=== PATIENT | male | born 1970 ===

== ENCOUNTER 2020-09-12 07:46 | Observation (INO) ==
--- NOTE | 2020-08-26 09:52 | PAT Medication Instructions ---
Medication Instructions Date of Service August 26, 2020 Home Medications lisinopril 10 mg PO QAM DO NOT take the morning of surgery lisinopril 10 mg PO QAM Other Notes If you have any questions please call us at [phone] or [phone] or [phone] or [phone]
--- NOTE | 2020-08-29 11:35 | Anesthesiology Consultation ---
Date of Service August 29, 2020 Assessment & Plan (1) Encounter for pre-operative examination: - COVID screening: Per assessment on 08/29: Travel screen negative, no known COVID-19 positive contacts or current COVID-19 related symptoms. Patient states he and household members follow CDC guidelines regarding masking and social distancing. Surgeon arranging preop COVID testing. Awaiting results. - ETOH use: Patient reports 6 beers/day (nighttime) Chart Review Chart Review: Acceptable Risk for Surgery (pending surgeon-ordered PCP clearance) and Patient seen in Pre Admission Testing Teaching & Discussion Pre-Anesthesia Teaching/Discussion Notes: Instructed NPO after midnight before surgery,except medications with 15 cc of water. Medication instructions provided according to the PAT guidelines. History Surgery Operation Date: 09/12/20 11:40 Proposed Procedures p C5-C7 Anterior Cervical Discectomy Fusion, Spinal Cord Monitoring - Kevin Izquierdo DO Height/Weight Height: 5 ft 7 in Weight: 77.1 kg Allergies Allergy/AdvReac Type Severity Reaction Status Date / Time Penicillins Allergy Unknown Unknown Verified 08/26/20 09:52 childhood reaction Medications Home Medications Medication Instructions Recorded Confirmed Last Taken lisinopril 10 mg tablet 10 mg PO QAM 08/26/20 08/26/20 Unknown Past Medical History Medical History Arthritis Hx of gout Hypertension Myocardial Infarction 20 years ago > medically managed Exercise / Class Metabolic Activity II 4-5 Yardwork/Stairs/Walk up hill Past Family History Family History Mother Family history of diabetes mellitus Other No family history of adverse response to anesthesia Past Surgical History Surgical History H/O lymph node biopsy Benign History of cardiac cath 20 years ago > no stents History of tooth extraction Past Anesthesia History No Hx of Anesthesia Complications and No Family Hx of Anesthesia Complications History of PONV No Hx of PONV and No Hx of Motion Sickness Social History Smoking Status: Current every day smoker tobacco type: cigarettes and smokeless tobacco Smoking cigarettes per day: 10 cigs/day (tobacco use x 20 years) Do You Dip or Chew Tobacco: Yes (1 can/one week > advised none DOS) Hx Alcohol Use: Yes Alcohol type: beer alcohol intake frequency: 3 or more drinks per day (6 beers/day (nighttime)) Hx Substance Use: No substance use type: does not use Review of Systems Occasional chronic, dry cough x several years, unchanged. Patient denies chest pain, shortness of breath, dyspnea on exertion, fever, chills, wheezing, palpitations. Physical Exam Vital Signs VITALS BP 133/83 P 76 TEMP 99.1 SP02 97%RA RESP 18 PHYSICAL Mildly decreased cervical extension range of motion (2/2 cervicalgia). Full TMJ range of motion. TMD 3.5 finger breaths Mallampati Score 3 Dentition: missing molars Lungs: clear throughout to auscultation Cardiac: regular rate and rhythm, no murmurs noted Spine: normal Carotid arteries: negative bruit Extremities: no edema Lab Results Anesthesia Preop Results Results Anesthesia Widget: WBC 6.65 K/uL (4.8-10.8) 08/29/20 Hgb 15.5 g/dL (14.0-18.0) 08/29/20 Hct 44.4 % (42-52) 08/29/20 Plt 189 K/uL (130-400) 08/29/20 Na 140 mmol/L (136-145) 08/29/20 K 4.0 mmol/L (3.5-5.1) 08/29/20 Cl 106 mmol/L (98-107) 08/29/20 CO2 34 mmol/L (21-32) H 08/29/20 BUN 14 mg/dl (7-18) 08/29/20 Creat 0.88 mg/dl (0.6-1.4) 08/29/20 Glucose Level 105 mg/dl (70-99) H 08/29/20 PT 10.3 Seconds (9.0-12.0) 08/29/20 PTT 26.6 Seconds (21.0-31.0) 08/29/20 INR 1.0 (0.9-1.1) 08/29/20 Urine Color Yellow 08/29/20 Urine Appearance Clear (Clear) 08/29/20 Urine pH 5.0 (4.5-7.5) 08/29/20 Urine Specific [place] 1.022 (1.000-1.030) 08/29/20 Urine Protein Negative (Negative) 08/29/20 Urine Glucose (UA) Negative (Negative) 08/29/20 Urine Ketones Trace (Negative) H 08/29/20 Urine Blood Negative (Negative) 08/29/20 Urine Nitrite Negative (Negative) 08/29/20 Urine Bilirubin Negative (Negative) 08/29/20 Urine Urobilinogen Negative (Negative) 08/29/20 Urine Leukocyte Esterase Negative (Negative) 08/29/20 Blood Type O Positive 08/29/20 Antibody Screen NEGATIVE 08/29/20 Testing Electrocardiogram Date: 08/29/20 Findings: + NSR @ (67) Chest X-Ray Date: 03/19/20 Findings: + NAD
[~2020-09-12 07:46] MED LIST: ACETAMINOPHEN 500 MG TAB PO SCH; CLINDAMYCIN 600 MG/54 ML BAG IV SCH; CeleBREX 200 MG CAP PO SCH; GABAPENTIN 900 MG DOSE PO SCH; LR 15ML/HR IV SCH
[2020-09-12] MEDS ORDERED: LIDOCAINE 2% 2 ML VIAL/AMP(20MG/ML) INFIL ONE (08:35)
[2020-09-12] MEDS ORDERED: PROPOFOL IV EMULSION 10 MG/ML 20 ML VIAL IV ONE (08:35)
[2020-09-12] MEDS ORDERED: ONDANSETRON INJ 2 MG/ML 2 ML VIAL ONE (08:35)
[2020-09-12] MEDS ORDERED: ROCURONIUM BROMIDE 10 MG/ML 5 ML VIAL IV ONE (08:35)
[2020-09-12] MEDS ORDERED: SUCCINYLCHOLINE CHLORIDE 20 MG/ML 10 ML VIAL IV ONE (08:36)
[2020-09-12] MEDS ORDERED: ONDANSETRON INJ 2 MG/ML 2 ML VIAL IV PRN ×2 (08:36→14:47)
[2020-09-12] MEDS ORDERED: NALOXONE HCL 0.4 MG/1 ML VIAL/CARP IV PRN ×2 (08:36→14:47)
[2020-09-12] MEDS ORDERED: MIDAZOLAM HCL 1 MG/ML 2ML VIAL ONE (08:36)
[2020-09-12] MEDS ORDERED: LABETALOL HCL IV 5 MG/ML 20ML IV PRN (08:36)
[2020-09-12] MEDS ORDERED: HYDROmorphone INJ 1 MG/ML SYRINGE IV PRN ×2 (08:36→14:47)
[2020-09-12] MEDS ORDERED: FLUMAZENIL 0.1 MG/1 ML 10 ML VIAL IV PRN (08:36)
[2020-09-12] MEDS ORDERED: fentaNYL citrate 100 MCG/2 ML VIAL IV PRN (08:36)
[2020-09-12] MEDS ORDERED: PROMETHAZINE HCL 12.5 MG in SODIUM CHLORIDE 0.9% 50 ML IV PRN ×2 (08:36→14:47)
[2020-09-12] MEDS ORDERED: ATROPINE SULFATE 0.1 MG/ML 10ML SYR IV PRN (08:36)
[2020-09-12] MEDS ORDERED: fentaNYL citrate 100 MCG/2 ML VIAL ONE ×2 (08:36→10:27)
[2020-09-12] MEDS ORDERED: ePHEDrine sulfate 50 MG/ML AMP IV PRN (08:36)
[2020-09-12] MEDS ORDERED: hydrALAZINE HCL 20 MG/ML VIAL IV STA (08:38)
--- NOTE | 2020-09-12 09:24 | History & Physical Bridge Note ---
Date of Service September 12, 2020 History & Physical Bridge Note I have examined the patient, reviewed the History & Physical and in the interval since the performance of the History & Physical I have noted the following changes of clinical significance: no changes noted
--- NOTE | 2020-09-12 09:25 | History & Physical Report ---
Date of Service September 12, 2020 Assessment & Plan (1) Cervical stenosis of spinal canal: Plan: C5 to C7 anterior cervical discectomy and fusion History of Present Illness Chief Complaint: Neck and arm pain Primary Care Provider: Kya Montelongo This is a 50-year-old male who presents with chronic persistent neck and arm pain after failing course of nonoperative care is here for surgical invention. Allergies Allergy/AdvReac Type Severity Reaction Status Date / Time Penicillins Allergy Unknown Unknown Verified 09/12/20 08:30 childhood reaction Home Medications Medication Instructions Recorded Confirmed Type lisinopril 10 mg tablet 10 mg PO QAM 08/26/20 09/12/20 History Past Med/Surg History Medical History Arthritis Hx of gout Hypertension Myocardial Infarction 20 years ago > medically managed Surgical History H/O lymph node biopsy Benign History of cardiac cath 20 years ago > no stents History of tooth extraction Family History Mother Family history of diabetes mellitus Other No family history of adverse response to anesthesia Social History Smoking Status: Current every day smoker Cigarettes Per Day: 10 cigs/day (tobacco use x 20 years); Second Hand Exposure: Yes; Do You Dip or Chew Tobacco: Yes (1 can/one week > advised none DOS); Tobacco Cessation Education Requested by Patient: No Hx Alcohol Use: Yes Alcohol type: beer Hx Substance Use: No Preferred Language: Divehi Mangle Tender Cloth Required: No Beliefs That Will Affect Care: None Current Living Situation: Family Current Living Situation Comment: AND DAUGHTER Feels Safe at Home: Yes Safety Concerns: Feels Safe At This Time Assistive Devices: Glasses Physical Exam Physical Exam: Patient is alert and oriented heart regular in rhythm lungs clear to auscultation Results & Data ([facility]) Vital Signs (Past 12 Hours) Vital Signs Temp Pulse Resp BP BP Pulse Ox 09/12/20 09:20 151/96 H 09/12/20 09:15 152/93 H 09/12/20 09:05 149/112 H 09/12/20 09:00 161/98 H 09/12/20 08:55 155/101 H 09/12/20 08:50 166/96 H 09/12/20 08:33 36.7 C 67 20 184/115 H 99
[2020-09-12] MEDS ORDERED: FLOSEAL HEMOSTATIC MATRIX 10ML TOP ONE (10:31)
[2020-09-12] MEDS ORDERED: HYDROmorphone INJ 2 MG/ML SYR/VIAL ONE (10:55)
--- NOTE | 2020-09-12 11:39 | Operative Report ---
Post Operative Report Pre & Post Diagnosis Operation Date: 09/12/20 09:45 Pre-Op Diagnosis: Spinal Stenosis, Cervical Region Post-Op Diagnosis: Spinal Stenosis, Cervical Region I identified the patient and participated in the time-out.: Yes Procedure Operation Date: 09/12/20 09:45 Actual Procedures #1 anterior cervical discectomy with bilateral foraminotomies C5-6 C6-C7. #2 anterior cervical arthrodesis C5-C6 C6-7. #3 placement 7 mm spiral cage C5-C6 and 8 mm cage at C6-C7 both filled with I factor. #4 application of 5 complete and screws from C5-C7. Surgeon Kevin Izquierdo, DO [employer] Hand Engraver None Estimated Blood Loss 25 Findings Consistent with Post-Op Diagnosis Specimens None Indications This is a 50-year-old male presents with above-mentioned diagnosis after failing course of nonoperative care is here for the above-mentioned procedure. Description of Procedure Patient met with identified informed consent obtained. Patient was then taken to the operative suite underwent ablation placed in the supine position on a Dominic table with head Menezes head inspector and center marker. All bony prominences well-padded eyes inspected to ensure no external pressure placed upon the. This point the anterior cervical spine was prepped and draped in a sterile fashion. With the assistance of fluoroscopy identified the C C6 vertebral body and a transverse incision was placed along the right anterior aspect of the cervical spinal lines region. Sharp dissection with the assistance of bipolar electrocautery was performed down to and exposing the anterior cervical spine from C5-C7. Self- retaining retractors placed. Informed complete discectomy of C5-C6 out to the uncovertebral's bilaterally. [place] distraction pins were utilized to assist in visualization. Removed all posterior annular fibers longitudinal ligament bilateral foraminotomies performed. The endplates were then burred to subcortically bone and a 7 mm spiral cage filled with I factor tapped in position. Then proceeded to C6-C7. Again complete discectomy was performed to the uncovertebral joints bilaterally. [place] distractor pins again utilized. Removed all posterior annular fibers longitudinal ligament and bilateral foraminotomies performed. Endplates were then burred to subcortical being bone and an 8 mm spiral cage filled with I factor tapped in position. Distracting apparatus was removed all anterior osteophytes burred to a smooth cortical surface and a 5 complete screws applied with the assistance of fluoroscopy. The incision was then copiously irrigated explored to ensure no damage to surrounding structures or remaining bleeding. 10 round ADELE drain inserted. The incision was then closed with 2 Vicryl in the fascia and 4 Monocryl for final skin closure. Steri-Strip sterile dressings placed. Patient waken taken to PACU stable condition. Please note spinal cord monitoring visualized at the procedure no changes noted. I attest to the content of the Intraoperative Record and any orders documented therein. Any exceptions are noted below.
--- NOTE | 2020-09-12 12:13 | Fluoroscopy Report ---
FL cervical 2-3V CLINICAL HISTORY: C5-7 ACDF COMPARISON STUDY: None. FLUOROSCOPY TIME: 14 seconds. FLUOROSCOPIC IMAGES: 3 FINDINGS: Fluoroscopy was provided during C5-C7 anterior discectomy and fusion. Surgical drain is in place. Endotracheal tube is partially imaged. Hardware is intact. A sponge marker shown on the image obtained at 11:28 AM is not visualized on the image obtained at 11:40 AM. IMPRESSION: Fluoroscopy provided during C5-C7 anterior discectomy and fusion. ACT 112: Negative or not required by law. Electronically signed by: Phu Selby M.D. 09/12/2020 12:12 PM
--- NOTE | 2020-09-12 12:52 | Anesthesiology Progress Note ---
Date of Service September 12, 2020 Anesthesia Post Procedure Vital Signs Vital Signs: Temp Pulse Pulse Resp BP BP Pulse Ox 09/12/20 12:45 36.3 C L 86 19 149/108 H 93 09/12/20 12:35 91 H 17 143/98 H 94 09/12/20 12:25 75 14 145/97 H 96 09/12/20 12:15 81 13 158/97 H 95 09/12/20 12:05 63 12 107/92 93 09/12/20 11:55 62 12 109/89 93 09/12/20 11:47 36.0 C L 67 10 L 118/90 93 09/12/20 09:20 151/96 H 09/12/20 09:15 152/93 H 09/12/20 09:05 149/112 H 09/12/20 09:00 161/98 H 09/12/20 08:55 155/101 H 09/12/20 08:50 166/96 H 09/12/20 08:33 36.7 C 67 20 184/115 H 99 Pain Intensity Neck: Pain Intensity: 4 Transfer of Care Handoff Completed per policy Notes Mental Status: alert / awake / arousable Patient Amnestic to Procedure: Yes Nausea / Vomiting: adequately controlled Pain: adequately controlled Airway Patency, RR, SpO2: stable & adequate BP & HR: stable & adequate Hydration State: stable & adequate Anesthetic Complications: no major complications apparent
[2020-09-12] MEDS ORDERED: METOCLOPRAMIDE HCL INJ 5 MG/ML 2 ML VIAL IV PRN (14:47)
[2020-09-12] MEDS ORDERED: FAMOTIDINE 20 MG TAB PO PRN (14:47)
[2020-09-12] MEDS ORDERED: DO NOT ADMINISTER FLU VACCINE PRN (14:47)
[2020-09-12] MEDS ORDERED: hydrOXYzine HCl 25 MG TAB PO PRN (14:47)
[2020-09-12] MEDS ORDERED: RACEPINEPHRINE 2.25% NEBU SOLN 0.5 ML VIAL INH PRN (14:47)
[2020-09-12] MEDS ORDERED: MAGNESIUM HYDROXIDE SUSP 30 ML UDC PO PRN (14:47)
[2020-09-12] MEDS ORDERED: LORazepam 0.5 MG TAB PO PRN (14:47)
[2020-09-12] MEDS ORDERED: SOD PHOSPHATE/SOD BIPHOSPHATE ENEMA 132 ML BTL PR PRN (14:47)
[2020-09-12] MEDS ORDERED: ACETAMINOPHEN 1,000 MG/100 ML VIAL IV PRN (14:47)
[2020-09-12] MEDS ORDERED: diphenhydrAMINE Capsule 25 MG CAP PO PRN (14:47)
[2020-09-12] MEDS ORDERED: DO NOT ADMINISTER PNEUMOCOCCAL VACCINE PRN (14:47)
[2020-09-12] MEDS ORDERED: bisacodyL 10 MG SUPP PR PRN (14:47)
[2020-09-12] MEDS ORDERED: ONDANSETRON 4 MG OD TAB PO PRN (14:47)
[2020-09-12] MEDS ORDERED: ALUMINUM/MAGNESIUM SUSP 30 ML UDC PO PRN (14:47)
[2020-09-12] MEDS ORDERED: traMADol HCL 50 MG TABLET PO PRN (14:47)
[2020-09-12] MEDS ORDERED: LORazepam 0.5 MG/1 ML VIAL IV PRN (14:47)
[2020-09-12] MEDS ORDERED: dexAMETHasone 8 MG in SYRINGE 0 ML IV PRN (14:47)
[2020-09-12] MEDS ORDERED: ACETAMINOPHEN 500 MG TAB PO PRN (14:47)
[2020-09-12] MEDS ORDERED: HYDROmorphone INJ 0.5 MG/0.5 ML SYR IV PRN (14:47)
[2020-09-12] MEDS ORDERED: DEXAMETHASONE SOD INJ 4 MG/ML VIAL IV STA (15:55)
[2020-09-12] MEDS: oxyCODONE HCL IR 5 MG TAB (IMMEDIATE RELEASE) PO PRN ×2 (17:45→22:35)
[2020-09-12] MEDS: LACTATED RINGER'S 1,000 ML IV SCH (17:46)
[2020-09-12] MEDS: CLINDAMYCIN 600 MG in DEXTROSE 5% 50 ML IV SCH (18:22)
[2020-09-12] MEDS ORDERED: DOCUSATE SODIUM/SENNA 50/8.6MG TAB PO SCH (21:00)
[2020-09-13] MEDS: CLINDAMYCIN 600 MG in DEXTROSE 5% 50 ML IV SCH (02:07)
[2020-09-13] MEDS: LACTATED RINGER'S 1,000 ML IV SCH (04:46)
[2020-09-13] MEDS ORDERED: POLYETHYLENE (MIRALAX) 17 GM PACK PO SCH (06:00)
[2020-09-13] MEDS ORDERED: lisinopril 10 MG TAB PO SCH (09:00)
--- NOTE | 2020-09-13 09:47 | Discharge Summary ---
Date of Service September 13, 2020 Admission HPI Per Admitting Provider This is a 50-year-old male who presents with chronic persistent neck and arm pain after failing course of nonoperative care is here for surgical invention. Principal Diagnosis Cervical spinal stenosis with radiculopathy Discharge Data Allergies Allergy/AdvReac Type Severity Reaction Status Date / Time Penicillins Allergy Unknown Unknown Verified 09/12/20 08:30 childhood reaction Procedures Performed Operation Date: 09/12/20 09:45 Actual Procedures p C5-C7 Anterior Cervical Discectomy and Fusion, Spinal Cord Monitoring(Not Applicable) - Kevin Izquierdo DO Ordered Studies 09/12/20 09:45 [place] cervical 2-3V Routine Hospital Course (1) Cervical stenosis of spinal canal: Patient went anterior cervical discectomy fusion trial exhausting orthopedic for postop. Postop day 1 swallowing well no hoarseness. Some modest residual radiculopathy left arm but improving. Excellent strength testing. ADELE drain decreasing probably. Subsequent discharge home. Discharge orders instructions from the chart for further review. Total Time Total Time Spent Total Time Spent (In Minutes): 20 minutes Discharge Plan Discharge Items Patient Disposition: Home - Self-Care Reason For Visit: Spinal Stenosis, Cervical Region Discharge Diagnosis: Cervical spinal stenosis with radiculopathy Activity: As commented below Non-emergency contact: Primary Care Provider Call non-emergency contact if: you have any medication questions Follow-up/Referrals: Kya Montelongo M.D. [Primary Care Provider] - Diet: Regular Addtl Attending Provider Instructions: ACTIVITY RECOMMENDATIONS: SELF CARE INSTRUCTIONS AFTER CERVICAL FUSIONS 1. No smoking. Smoking drastically decreases the chance of a solid fusion. 2. No bending, lifting more than 5 pounds, or twisting (roll like a log when turning in bed). 3. You may shower 3 days after surgery. Thoroughly dry wound. Do not soak in the tub. 4. Cervical collar: Must be worn at all times including sleeping. You may remove the brace only to bath, eat and if you are sitting in a recliner. 5. Please walk as much as you can for exercise. Gradually increase the distance that you walk as your endurance increases. SPECIAL CARE INSTRUCTIONS: VERY IMPORTANT TO READ AND REVIEW A. Do not take any anti-inflammatory medications (i.e. Indocin, Advil, Aspirin, Naprosyn, Aleve, Motrin, etc.) as these may inhibit the chance of a solid fusion. Tylenol is okay to take. B. Your surgical incision has been closed with a cosmetic suture under the skin that will dissolve in about 6 weeks. In 14 days, you can use a pair of clean scissors and cut the suture that is left outside of the skin at the ends of your incision. C. Complications are uncommon, but please contact us if you have any signs or symptoms of: 1. wound infection (fever higher than 102.5 degrees F, redness, separation of wound, drainage, or increasing pain from the incision) 2. blood clots in legs (pain, swelling, redness and warmth in legs) 3. urinary tract infection (fever higher than 102.5 degrees, burning upon urination or increased frequency of urination) 4. nerve problems (inability to walk on your toes or heels, numbness, loss of bowel or bladder control) 5. any other symptoms that concern you. D. Please call the office at if you have any concerns or questions about your operation or recovery. MANAGING PAIN AFTER SPINAL SURGERY 1. Narcotic medication is intended for short-term use and will be provided for surgical pain. Surgical pain usually lasts for a period of 4-6 weeks. Narcotic medication includes Percocet, Vicodin, Darvocet, Tylenol #3 or Lortab. 2. Longer-term pain is more appropriately treated with non-narcotic medication such as Tylenol ES. 3. Muscle spasm is not appropriately treated with narcotics. Muscle relaxers such as Soma, Flexeril or Skelaxin can be used along with Tylenol ES. 4. Remember that we all live with some "aches and pains". This is not unusual or uncommon after an injury or as we get older. 5. We will provide appropriate medication within the normal guidelines of their prescribed use. We will also be very cautious and aware of potential abuse and extended duration of patients' medication needs. 6. Please allow 2-3 days to process refills. Prescriptions will not be mailed but must be picked up at the office. FOLLOW UP VISIT: Keep your scheduled follow-up appointment. Any questions, please call the office at . Pending Studies at Discharge: No Stand-Alone Forms: My [facility] Medications and DC Order Prescriptions: New tramadol 50 mg tablet 50 mg PO Q6H PRN (Reason: pain, moderate) Qty: 20 RF: 0 oxycodone 5 mg tablet 5 mg PO Q6H PRN (Reason: pain, severe) Qty: 20 RF: 0 Continued lisinopril 10 mg Tablet 10 mg PO QAM RF: 0 Discharge Orders: Discharge Order (Routine); Ordered 09/13/20 Ordered By: Kevin Izquierdo Admission Data Admit Date/Time: 09/12/20 11:41 Attending Provider: Kevin Izquierdo Admit Provider: Kevin Izquierdo Primary Care Provider: Kya Montelongo
[2020-09-13] MEDS ORDERED: dexAMETHasone 8 MG in SYRINGE 0 ML IV ONE (10:00)
== END 2020-09-13 11:04 | disposition home or self-care (01) ==
LOC: ASU 07:46 → INTOOBSV 11:41 → PACUINP 11:41 → 3E 16:36